=== PATIENT | female | born 1990 | race Caucasian/White ===

== ENCOUNTER 2020-02-22 21:09 | Inpatient (IN) | payer OTHER, SELFPAY ==
[2020-02-22] VITALS (8 sets, daily range): BP systolic 116–128; BP diastolic 74–80; PULSE 104–150; RESP 18–28; TEMP 37.6–38.1; O2SAT 96–99; BMI 29.0
--- NOTE | 2020-02-22 21:22 | ED_ITS ---
HPI - Sepsis General Chief Complaint: Fever Mode of arrival: Ambulatory Source: patient and family Limitations: no limitations Evaluation Sepsis Infection Criteria Present: Suspected New Infection Associated Symptoms: fever, chills, weakness, loss of appetite, nausea, vomiting and diarrhea Context: recent surgery/procedure Narrative: 29-year-old female nonsmoker with history of anxiety presents with her mother and a chief complaint of feeling quite ill for the past few days. Her symptoms include fever, shaking chills, body aches, lightheadedness, fatigue, nausea, vomiting, and diarrhea. She denies any runny nose or sore throat. She denies any chest pain or shortness of breath. She had wisdom teeth removed on February 09 and had a follow-up in the aftermath to do a deep pocket washout. She had been on clindamycin prophylactically and started becoming ill over the past few days. She denies any bad food, exposure to other ill persons or those known to have COVID-19. She denies any blood in her stool at any point. She states that it is not uncommon for her to get nausea, vomiting and especially diarrhea when she is particularly anxious, which she admittedly is. She denies any facial swelling, trouble swallowing, particularly painful gums, teeth, foul or bitter tasting drainage, and states that her mouth actually feels pretty good. Review of Systems Constitutional Constitutional: Reports chills, Denies fatigue, Reports fever(s), Denies frequent falls, Denies lethargy and Reports weakness Eyes Eyes: Denies change in vision, Denies eye discharge, Denies irritation and Denies loss of vision ENT Ears, Nose, Mouth, and Throat: Denies change in voice, Denies dizziness, Denies neck pain, Denies sore throat and Denies throat swelling Cardiovascular Cardiovascular: Denies chest pain, Denies irregular heart rhythm, Denies lightheadedness, Reports palpitations, Denies dyspnea, Denies dyspnea on exertion and Denies orthopnea Respiratory Respiratory: Denies cough, Denies dyspnea, Denies dyspnea on exertion and Denies wheezing Gastrointestinal Gastrointestinal: Denies abdominal pain, Denies change in bowel habits, Reports diarrhea, Denies nausea and Reports vomiting Musculoskeletal Musculoskeletal: Denies neck pain and Denies numbness Integumentary/Breasts Skin/Breast: Denies pruritus, Denies erythema, Denies rash and Denies wounds Neurologic Neurologic: Denies behavioral changes, Denies confusion, Denies dizziness, Denies frequent falls, Denies loss of vision, Denies numbness and Reports weakness Psychiatric Psychiatric: Denies anxiety, Denies behavioral changes, Denies confusion, Denies depression, Denies homicidal ideation and Denies suicidal ideation Endocrine Endocrine: Denies fatigue, Denies flushing and Reports palpitations Hematologic/Lymphatic Hematologic/Lymphatic: Denies easy bruising Allergic/Immunologic Allergic/Immunologic: Denies urticaria, Denies throat swelling and Denies wheezing Patient History Medical History (Updated 02/23/20 @ 05:06 by SHERLY Wolfe) Anxiety Chronic low back pain Surgical History (Updated 02/23/20 @ 05:06 by SHERLY Wolfe) History of wisdom tooth extraction Family History (Updated 02/23/20 @ 05:08 by SHERLY Wolfe) Father Medical history unknown Mother Hypertension Sister No significant medical problems Grandmother Cancer Grandfather Heart disease Social History household members: significant other Smoking Status: Never smoker alcohol intake: current Smoking Status: Never smoker alcohol intake frequency: 0-2 drinks per day Substance Use Type: does not use Exam Narrative Exam Narrative: GENERAL: [21] year old patient appears stated age. Well-nourish ed, well-developed patient, in obvious distress, feeling poorly, holding an emesis bag. HEAD: Atraumatic. Normocephalic. No obvious swelling, redness or induration. EYES: Pupils equal round and reactive. Extraocular motions intact. No scleral icterus. No injection or drainage. ENT: Nose without bleeding, purulent drainage. Throat without erythema, tonsillar hypertrophy or exudate. Airway patent. Surgical pockets showed no obvious sign of infection such as drainage, inflammation, erythema, or significant tenderness to palpation NECK: Trachea midline. Non tender CARDIOVASCULAR: Tachycardic but regular rhythm without murmurs, gallops, or rubs. RESPIRATORY: Clear to auscultation. Breath sounds equal bilaterally. No wheezes, rales, or rhonchi. GASTROINTESTINAL: Abdomen soft, non-tender, nondistended. EXTREMITIES: No edema or joint tenderness. BACK: Nontender without deformity or crepitance. No flank tenderness. NEURO: AOx3. SKIN: No rash or erythema of visible areas Initial Vital Signs Initial Vital Signs: Vital Signs Temperature 100.5 F H 02/22/20 21:30 Pulse Rate 150 H 02/22/20 21:30 Respiratory Rate 18 02/22/20 21:30 Blood Pressure 128/80 02/22/20 21:30 Pulse Oximetry 96 02/22/20 21:30 Course Orders Ordered: ED Orders 02/22/20 21:23 EKG-12 Lead Stat 02/22/20 21:30 Influenza A & B (PCR) Stat 02/22/20 21:32 COVID19 Stat 02/22/20 21:40 C-Reactive Protein Quant Stat Complete Blood Count AUTO DIFF Stat Comprehensive Metabolic Panel Stat Ferritin Stat Lactate (Lactic Acid) Stat Magnesium Stat Procalcitonin Stat 02/22/20 21:45 Blood Culture Stat 02/22/20 22:54 XR chest 1V Stat Acetaminophen (Acetaminophen 325 Mg Tablet) 650 mg PO Q4HR PRN PRN Reason: Fever/Mild Pain (1-3) Last Admin: 02/23/20 05:14 Dose: 650 mg Documented by: Admin: 02/23/20 01:22 Dose: 650 mg Documented by: MARGA Enoxaparin Sodium (Enoxaparin 40 Mg/0.4 Ml Syringe) 40 mg SUBCUT DAILY [facility] Lactated Ringer's (Lactated Ringers) 1,000 mls @ 150 mls/hr IV CONT [facility] Last Admin: 02/23/20 01:26 Dose: 150 mls/hr Documented by: MARGA Vancomycin HCl (Vancomycin) 1,250 mg in 250 mls @ 250 mls/hr IV Q12H [facility] Last Admin: 02/23/20 03:07 Dose: 250 mls/hr Documented by: MARGA Ceftriaxone Sodium/Dextrose (Rocephin) 2 gm in 50 mls @ 100 mls/hr IV Q24H [facility] Last Infusion: 02/23/20 03:05 Dose: 100 mls/hr Documented by: Admin: 02/23/20 02:17 Dose: 100 mls/hr Documented by: MARGA Ketorolac Tromethamine (Ketorolac 30 Mg/Ml Vial) 30 mg IV Q6HR PRN PRN Reason: Pain, Severe (7-10) Stop: 02/28/20 00:14 Lidocaine (Lidocaine Patch 1 Each Adh..Patch) 1 each TOP DAILY PRN PRN Reason: Pain, Moderate (4-6) Last Admin: 02/23/20 05:14 Dose: 1 each Documented by: MARGA Lorazepam (Lorazepam 2 Mg/Ml Inj) 0.5 mg IV Q6HR PRN PRN Reason: Nausea Last Admin: 02/23/20 01:15 Dose: 1 mg Documented by: MARGA Metoclopramide HCl (Metoclopramide 10 Mg/2 Ml Inj) 10 mg IV Q6HR PRN PRN Reason: Nausea And Vomiting Naloxone HCl (Naloxone 0.4 Mg/Ml Vial) 0.2 mg IV Q2MIN PRN PRN Reason: Opiate Reversal Ondansetron HCl (Ondansetron 4 Mg/2 Ml Inj) 4 mg IV Q6HR PRN PRN Reason: Nausea And Vomiting Last Admin: 02/23/20 05:14 Dose: 4 mg Documented by: MARGA Vancomycin HCl (Vancomycin Per Pharmacy) 1 request MIS NOW ONE Stop: 02/23/20 01:08 Discontinued Medications Lactated Ringer's (Lactated Ringers) 1,000 mls @ 1,000 mls/hr IV BOLUS ONE Stop: 02/22/20 22:21 Last Infusion: 02/22/20 23:25 Dose: 0 mls/hr Documented by: Admin: 02/22/20 21:47 Dose: 1,000 mls/hr Documented by: TRICIA Ampicillin Sodium/Sulbactam (Sodium 3 gm/ Sodium Chloride) 100 mls @ 100 mls/hr IV NOW ONE Stop: 02/22/20 22:55 Last Infusion: 02/23/20 00:15 Dose: 0 mls/hr Documented by: Admin: 02/22/20 23:14 Dose: 100 mls/hr Documented by: DEMETRIS Lactated Ringer's (Lactated Ringers) 1,779 mls @ 593 mls/hr 30 ml/kg infuse over 3 hr (1779 ml) IV NOW ONE Stop: 02/23/20 01:53 Last Admin: 02/22/20 23:13 Dose: 593 mls/hr Documented by: DEMETRIS Magnesium Sulfate (Magnesium Sulfate) 2 gm in 50 mls @ 25 mls/hr IV NOW ONE Stop: 02/23/20 02:17 Last Admin: 02/23/20 01:32 Dose: 25 mls/hr Documented by: MARGA Cosigned by: DERICK Influenza Virus Vaccine (Influenza Vaccine 0.5 Ml Syringe) 0.5 ml IM .ONCE ONE Stop: 02/23/20 02:11 Ketorolac Tromethamine (Ketorolac 60 Mg/2 Ml Vial) 15 mg IV NOW ONE Stop: 02/22/20 21:23 Last Admin: 02/22/20 21:47 Dose: 15 mg Documented by: TRICIA Lorazepam (Lorazepam 2 Mg/Ml Inj) 0.5 mg IV NOW ONE Stop: 02/22/20 23:50 Last Admin: 02/22/20 23:55 Dose: 0.5 mg Documented by: DEMETRIS Lorazepam (Lorazepam 2 Mg/Ml Inj) 1 mg IV NOW ONE Stop: 02/23/20 01:13 Last Admin: 02/23/20 02:40 Dose: Not Given Documented by: MARGA Ondansetron HCl (Ondansetron 4 Mg/2 Ml Inj) 4 mg IV Q4HR PRN PRN Reason: Nausea And Vomiting Last Admin: 02/22/20 21:48 Dose: 4 mg Documented by: TRICIA Reevaluation(s) Reevaluation #1: temperature down to 99.7F after toradol Patient reports allergy to PCN as a baby and had a rash, no hives, swelling, or trouble breathing. We discussed at length that the vast majority of reported PCN allergies are not true allergy, particularly if only a mild rash. Unasyn given with no itching, rash, swelling, trouble breathing or other. Consultations Consultation #1: hospitalist happy to accept Vital Signs Vital signs: Vital Signs - 8 hr 02/22/20 22:05 02/22/20 22:30 02/22/20 23:00 Pulse Rate 119 H 104 H 110 H Respiratory Rate 26 H 28 H 28 H Blood Pressure 120/74 120/75 117/74 Pulse Oximetry 97 98 98 02/22/20 23:22 02/22/20 23:30 Pulse Rate 104 H 109 H Respiratory Rate 28 H 26 H Blood Pressure 119/75 116/75 Pulse Oximetry 98 99 MDM - Sepsis Lab Data Result diagrams: 02/22/20 21:40 01/09/21 21:40 Labs: Lab Results 02/22/20 02/22/20 02/22/20 Range/Units 21:30 21:32 21:40 WBC 23.3 H (4.5-11.0) X10^3/uL RBC 4.32 (4.0-5.2) X10^6/uL Hgb 12.5 (12.0-16.0) g/dL Hct 36.6 (36-46) % MCV 84.9 (80-100) fL MCH 28.9 (26-34) PG MCHC 34.1 (30-36) % RDW 12.9 (11.6-14.8) % Plt Count 265 (150-400) X10^3/uL Neut % (Auto) 90.8 H (50-75) % Lymph % (Auto) 2.8 L (25-40) % [place] % (Auto) 5.6 (3-14) % Eos % (Auto) 0.2 L (2-4) % Baso % (Auto) 0.6 (0-2) % Neut # (Auto) 00938 H (8746-9484) /uL Lymph # (Auto) 700 L (7057-5933) /uL [place] # (Auto) 1300 H (0-900) /uL Eos # (Auto) 100 (0-450) /uL Baso # (Auto) 100 (0-100) /uL Sodium (137-145) mmol/L Potassium (3.4-5.1) mmol/L Chloride (98-107) mmol/L Carbon Dioxide (22-32) mmol/L BUN (7-17) mg/dL Creatinine (0.52-1.04) mg/dL Estimated GFR (>60) mL/min BUN/Creatinine Ratio (6-22) Glucose (70-100) mg/dL Lactate (0.7-2.1) mmol/L Calcium (8.4-10.2) mg/dL Magnesium (1.6-2.3) mg/dL Ferritin (6-137) ng/mL Total Bilirubin (0.2-1.3) mg/dL AST (14-36) IU/L ALT (<35) IU/L Alkaline Phosphatase (38-126) U/L C-Reactive Protein (<1.0) mg/dL Total Protein (6.3-8.2) g/dL Albumin (3.5-5.0) g/dL Globulin (1.7-4.1) g/dL Albumin/Globulin Ratio (1.0-2.8) Procalcitonin (<0.5) ng/mL SARS-CoV-2 (PCR) Negative (Negative) Influenza A (RT-PCR) Flu a negative (NEGATIVE) Influenza B (RT-PCR) Flu b negative (NEGATIVE) 02/22/20 02/22/20 02/22/20 Range/Units 21:40 21:40 21:40 WBC (4.5-11.0) X10^3/uL RBC (4.0-5.2) X10^6/uL Hgb (12.0-16.0) g/dL Hct (36-46) % MCV (80-100) fL MCH (26-34) PG MCHC (30-36) % RDW (11.6-14.8) % Plt Count (150-400) X10^3/uL Neut % (Auto) (50-75) % Lymph % (Auto) (25-40) % [place] % (Auto) (3-14) % Eos % (Auto) (2-4) % Baso % (Auto) (0-2) % Neut # (Auto) (4136-6864) /uL Lymph # (Auto) (5668-3187) /uL [place] # (Auto) (0-900) /uL Eos # (Auto) (0-450) /uL Baso # (Auto) (0-100) /uL Sodium 136 L (137-145) mmol/L Potassium 3.6 (3.4-5.1) mmol/L Chloride 107 (98-107) mmol/L Carbon Dioxide 20 L (22-32) mmol/L BUN 11 (7-17) mg/dL Creatinine 0.57 (0.52-1.04) mg/dL Estimated GFR > 60.0 (>60) mL/min BUN/Creatinine Ratio 19.3 (6-22) Glucose 147 H (70-100) mg/dL Lactate 2.5 H (0.7-2.1) mmol/L Calcium 9.1 (8.4-10.2) mg/dL Magnesium 1.5 L (1.6-2.3) mg/dL Ferritin 48 (6-137) ng/mL Total Bilirubin 0.5 (0.2-1.3) mg/dL AST 19 (14-36) IU/L ALT 20 (<35) IU/L Alkaline Phosphatase 65 (38-126) U/L C-Reactive Protein 1.3 H (<1.0) mg/dL Total Protein 7.0 (6.3-8.2) g/dL Albumin 4.0 (3.5-5.0) g/dL Globulin 3.0 (1.7-4.1) g/dL Albumin/Globulin Ratio 1.3 (1.0-2.8) Procalcitonin < 0.05 (<0.5) ng/mL SARS-CoV-2 (PCR) (Negative) Influenza A (RT-PCR) (NEGATIVE) Influenza B (RT-PCR) (NEGATIVE) Point of Care Testing Test Results Negative Urine Dip Bedside Urine Glucose Negative Bedside Urine Bilirubin - Negative Bedside Urine Ketone - Negative Urine Specific [place] 1.030 Bedside Urine Occult Blood - Negative Bedside Urine pH 6 Bedside Urine Protein - Negative Bedside Urine Urobilinogen - Negative Bedside Urine Nitrite - Negative Bedside Urine Leukocytes - Negative Esterase Imaging Data Chest x-ray: Attestation: I personally reviewed and interpreted this imaging study as follows: My Impression: NAP Radiologist's Impression: No findings MDM Narrative Medical decision making narrative: 29-year-old female presents with sepsis, recent dental procedure raising the concern of odontogenic spread and bacteremia as source. Her GI symptoms are considered as a possible source, but no blood in stool, no BM or vomiting in department, no pain and similar to what happens when she becomes anxious. CXR is clear, urine is clear. Patient has Lactate 2.5 and WBC over 20,000. She will require admission for further characterization of her sepsis and ongoing treatment and evaluation. Discharge Plan Departure Patient Disposition: Admitted As Inpatient Clinical Impression: Bacteremia Sepsis Qualifiers: Sepsis type: sepsis due to unspecified organism Sepsis acute organ dysfunction status: without acute organ dysfunction Qualified Code(s): A41.9 - Sepsis, unspecified organism Admit Date/Time: 02/22/20 23:32 Admit Provider: Hossein Marie
[2020-02-22] MEDS: KETOROLAC 60 MG/2 ML VIAL 15 MG IV (21:47)
[2020-02-22] MEDS: LACTATED RINGERS 1,000 ML 1000 ML IV (21:47)
[2020-02-22] MEDS: ONDANSETRON 4 MG/2 ML INJ IV (21:48)
[2020-02-22 21:50] LABS: Add Manual Diff / Slide Review NO; Basophils Absolute Auto 100 /uL (0-100); Basophils Percent Auto 0.6 % (0-2); Eosinophils Absolute Auto 100 /uL (0-450); Eosinophils Percent Auto 0.2 % (2-4); Hematocrit 36.6 % (36-46); Hemoglobin 12.5 g/dL (12.0-16.0); Lymphocytes Absolute Auto 700 /uL (1100-4500); Lymphocytes Percent Auto 2.8 % (25-40); Mean Corpuscular HGB Conc 34.1 % (30-36); Mean Corpuscular Hemoglobin 28.9 PG (26-34); Mean Corpuscular Volume 84.9 fL (80-100); Monocytes Absolute Auto 1300 /uL (0-900); Monocytes Percent Auto 5.6 % (3-14); Neutrophils Absolute Auto 21100 /uL (1500-7000); Neutrophils Percent Auto 90.8 % (50-75); Platelet Count 265 X10^3/uL (150-400); Red Blood Cell Count 4.32 X10^6/uL (4.0-5.2); Red Cell Distribution Width 12.9 % (11.6-14.8); White Blood Cell Count 23.3 X10^3/uL (4.5-11.0)
[2020-02-22 22:03] LABS: Lactate (Lactic Acid) 2.5 mmol/L (0.7-2.1)
[2020-02-22 22:05] LABS: Alanine Aminotransferase 20 IU/L (<35); Albumin Globulin Ratio 1.3 (1.0-2.8); Alkaline Phosphatase 65 U/L (38-126); Aspartate Aminotransferase 19 IU/L (14-36); BUN Creatinine Ratio 19.3 (6-22); Bilirubin Total 0.5 mg/dL (0.2-1.3); Blood Urea Nitrogen 11 mg/dL (7-17); C-Reactive Protein Quant 1.3 mg/dL (<1.0); Calcium 9.1 mg/dL (8.4-10.2); Carbon Dioxide 20 mmol/L (22-32); Chloride 107 mmol/L (98-107); Estimated Glomerular Filt Rate > 60.0 mL/min (>60); Glucose 147 mg/dL (70-100); HEMOLYSIS < 15 (0-50); Magnesium 1.5 mg/dL (1.6-2.3); Potassium 3.6 mmol/L (3.4-5.1); Sodium 136 mmol/L (137-145)
[2020-02-22 22:05] LABS: Influenza A - CEPHEID Flu A NEGATIVE (NEGATIVE); Influenza B - CEPHEID Flu B NEGATIVE (NEGATIVE)
[2020-02-22 22:17] LABS: Procalcitonin < 0.05 ng/mL (<0.5)
[2020-02-22 22:29] LABS: COVID19 -Nasal RAPID Negative (Negative)
[2020-02-22 22:38] LABS: Ferritin 48 ng/mL (6-137)
--- NOTE | 2020-02-22 22:54 | DI.RAD.S_ITS ---
PROCEDURE: XR CHEST 1V INDICATIONS: sepsis TECHNIQUE: One view of the chest was acquired. COMPARISON: None. FINDINGS: Surgical changes and devices: None. Lungs and pleura: Lungs are clear. No pleural effusions or pneumothorax. Mediastinum: Mediastinal contours appear normal. Heart size is normal. Bones and chest wall: No suspicious bony lesions. Overlying soft tissues appear unremarkable. IMPRESSION: No acute cardiopulmonary abnormality. This report is concordant with the overnight preliminary interpretation. Dictated by: Frank Henriquez M.D. on 02/23/2020 at 7:38 Approved by: Frank Henriqeuz M.D. on 02/23/2020 at 7:39
[2020-02-22] MEDS: LACTATED RINGERS 1,779 ML 593 ML IV (23:13)
[2020-02-22] MEDS: AMPICILLIN/SULBACTAM 3 GM 3 GM in SODIUM CHLORIDE 0.9% 100 ML IV (23:14)
[2020-02-22 23:45] LABS: Reflexed Lactate in 2 Hours Y
[2020-02-22] MEDS: LORazepam 2 MG/ML INJ 0.5 MG IV (23:55)
[2020-02-23] VITALS (19 sets, daily range): BP systolic 72–125; BP diastolic 48–81; PULSE 107–132; RESP 14–41; TEMP 36.9–39.5; O2SAT 94–100
[2020-02-23 00:16] LABS: Lactate 2HR (Lactic Acid Rflx) 1.6 mmol/L (0.7-2.1)
--- NOTE | 2020-02-23 01:05 | P.HP_ITS ---
History of Present Illness History of Present Illness Date Patient Seen: 02/23/20 Time Patient Seen: 01:16 Chief complaint: rash/fever/vomiting/ wisdom teeth 02/09 Narrative: Ms. Tessie Villa is a 29-year-old female with past medical history only significant for anxiety not being medically treated and chronic low back pain from sports injury and status post wisdom tooth extraction on 02/05/2020 with postoperative pain is swelling with washout on 02/17/2020. The patient's dental symptoms improved until today. The patient describes feeling poorly today and her mother described her as having been irritable. She began having an acute onset nausea and vomiting approximately 8:00 p.m. this evening. She has had multiple episodes of emesis now reports dry heaves. The patient has had fevers and shaking rigors and denies headache, exacerbation of her chronic back and hip pain. She to Sabrina reports having intermittent episodes of dizziness over the last week. She reports no complaints of chest pain or palpitations has had no shortness breath except for hyperventilation with anxiety attacks. She has had no cough or wheezing. She denies complaints of epigastric or abdominal pain. She reports she has had diarrhea the last few days but also knows that she has diarrhea with anxiety and stress. She reports no urinary symptoms of burning urgency or frequency. She reports she has irregular menstrual. Is with her last period being 2 months ago and states that she could not be . Upon arrival to the ER the patient's temperature 100.5?, tachycardic of 150, blood pressure 128/80, respirations of 18 saturating 96% on room air. Chest x- ray is obtained which is unremarkable. On laboratory analysis the patient has over a count of 23.3 with increased neutrophils at 21,100 and increased monocytes at 1300. Her hemoglobin is 12.5 with hematocrit of 36.6 and platelets 265. Her chemistries unremarkable with a BUN of 11 and creatinine 0.57. She does have a low magnesium of 1.5. Her nonfasting glucose is 147. Liver functio n tests are all within normal limits. Upon arrival her lactic acid is 2.5 minutes following fluid resuscitation is improved to 1.6. Ferritin is 48 and CRP is 1.3. Her procalcitonin is less than 0.05. Her urine is concentrated with a specific gravity of 1 point at 12:30 a.m., pH of 6.0 and noninfected. In the ER lactated Ringer sepsis bolus was initiated, blood cultures were drawn, Toradol and Ativan and Zofran were administered. The patient was started on Unasyn. The patient is admitted to the hospitalist service for sepsis with cardiovascular dysfunction due to probable bacteremia. Patient History Medical History (Updated 02/23/20 @ 05:06 by SHERLY Wolfe) Anxiety Chronic low back pain Surgical History (Updated 02/23/20 @ 05:06 by SHERLY Wolfe) History of wisdom tooth extraction Family & Social History Family History (Updated 02/23/20 @ 05:08 by SHERLY Wolfe) Father Medical history unknown Mother Hypertension Sister No significant medical problems Grandmother Cancer Grandfather Heart disease Safety & Behavioral: Feels Safe in Current Yes Environment Tobacco & Substance use: Smoking Status Never smoker alcohol intake frequency 0-2 drinks per day Substance Use Type does not use Meds Home Medications and Allergies Allergies Allergy/AdvReac Type Severity Reaction Status Date / Time amoxicillin Allergy Verified 02/22/20 21:29 Review of Systems Review of Systems ROS: Yes All systems reviewed with the patient and are negative except as otherwise documented Exam Vital Signs (past 8 hours): - 02/22/20 21:30 02/22/20 22:05 02/22/20 22:30 Temperature 100.5 F H Pulse Rate 150 H 119 H 104 H Respiratory Rate 18 26 H 28 H Blood Pressure 128/80 120/74 120/75 Pulse Oximetry 96 97 98 02/22/20 23:00 02/22/20 23:22 02/22/20 23:30 Temperature Pulse Rate 110 H 104 H 109 H Respiratory Rate 28 H 28 H 26 H Blood Pressure 117/74 119/75 116/75 Pulse Oximetry 98 98 99 02/22/20 23:40 02/22/20 23:41 Temperature 99.7 F H 99.7 F H Pulse Rate Respiratory Rate Blood Pressure Pulse Oximetry Oxygen Delivery Method Room Air Narrative Exam Narrative: GENERAL APPEARANCE: well developed, obese young female who is severely anxious, sobbing with dry heaves lying in a right position. HEENT: Normocephalic, PERRLA, conjunctiva with vascular injection, EOMs intact without nystagmus, clear rhinorrhea, mucous membranes are moist and pink without lesions or exudate. NECK/THYROID: neck supple, nontender without step-offs, no JVD, no thyromegaly, trachea midline. LYMPH NODES: no cervical or supraclavicular lymphadenopathy. SKIN: [employer], warm and dry, no visible lesions or rashes. HEART: regular rate and rhythm, S1-S2, no murmur, no rubs or gallops, brisk capillary refill, no edema LUNGS: clear to auscultation bilaterally, no coarseness crackles or wheezing, no cough present CHEST: Symmetrical movement, no accessory muscle use, good tidal volume. ABDOMEN: Soft, no distention, no epigastric or abdominal tenderness, no organomegaly, no flank or suprapubic tenderness, active bowel tones. BACK: Loss of lumbar lordosis, mild pain on palpation, no palpable muscle spasms. EXTREMITIES: moves all extremities, strength is 5/5 and symmetrical, no deformities or joint effusions. NEUROLOGIC: AAO x4, cranial nerves II-XII grossly intact, sensation intact to light touch, no carpal pedal spasms PSYCH: Severely anxious, dry heaving and hyperventilating, able to calm intermittently with continued paroxysms of sobbing. Objective Labs Result Diagrams: 02/22/20 21:40 02/22/20 21:40 Labs: Laboratory Results - last 24 hr 02/22/20 02/22/20 02/22/20 21:30 21:32 21:40 WBC 23.3 H RBC 4.32 Hgb 12.5 Hct 36.6 MCV 84.9 MCH 28.9 MCHC 34.1 RDW 12.9 Plt Count 265 Neut % (Auto) 90.8 H Lymph % (Auto) 2.8 L [place] % (Auto) 5.6 Eos % (Auto) 0.2 L Baso % (Auto) 0.6 Neut # (Auto) 34522 H Lymph # (Auto) 700 L [place] # (Auto) 1300 H Eos # (Auto) 100 Baso # (Auto) 100 Sodium Potassium Chloride Carbon Dioxide BUN Creatinine Estimated GFR BUN/Creatinine Ratio Glucose Lactate Calcium Magnesium Ferritin Total Bilirubin AST ALT Alkaline Phosphatase C-Reactive Protein Total Protein Albumin Globulin Albumin/Globulin Ratio Procalcitonin SARS-CoV-2 (PCR) Negative Influenza A (RT-PCR) Flu a negative Influenza B (RT-PCR) Flu b negative 02/22/20 02/22/20 02/22/20 21:40 21:40 21:40 WBC RBC Hgb Hct MCV MCH MCHC RDW Plt Count Neut % (Auto) Lymph % (Auto) [place] % (Auto) Eos % (Auto) Baso % (Auto) Neut # (Auto) Lymph # (Auto) [place] # (Auto) Eos # (Auto) Baso # (Auto) Sodium 136 L Potassium 3.6 Chloride 107 Carbon Dioxide 20 L BUN 11 Creatinine 0.57 Estimated GFR > 60.0 BUN/Creatinine Ratio 19.3 Glucose 147 H Lactate 2.5 H Calcium 9.1 Magnesium 1.5 L Ferritin 48 Total Bilirubin 0.5 AST 19 ALT 20 Alkaline Phosphatase 65 C-Reactive Protein 1.3 H Total Protein 7.0 Albumin 4.0 Globulin 3.0 Albumin/Globulin Ratio 1.3 Procalcitonin < 0.05 SARS-CoV-2 (PCR) Influenza A (RT-PCR) Influenza B (RT-PCR) 02/22/20 23:56 WBC RBC Hgb Hct MCV MCH MCHC RDW Plt Count Neut % (Auto) Lymph % (Auto) [place] % (Auto) Eos % (Auto) Baso % (Auto) Neut # (Auto) Lymph # (Auto) [place] # (Auto) Eos # (Auto) Baso # (Auto) Sodium Potassium Chloride Carbon Dioxide BUN Creatinine Estimated GFR BUN/Creatinine Ratio Glucose Lactate 1.6 Calcium Magnesium Ferritin Total Bilirubin AST ALT Alkaline Phosphatase C-Reactive Protein Total Protein Albumin Globulin Albumin/Globulin Ratio Procalcitonin SARS-CoV-2 (PCR) Influenza A (RT-PCR) Influenza B (RT-PCR) Assessment & Plan Assessment & Plan narrative: This is a 29-year-old female patient with past medical history only significant for anxiety who presents to the ER with nausea and vomiting, shaking chills and tachycardia. The patient is status post with teeth extraction and with a washout 5 days ago due to pain swelling and retained food. 1. Severe sepsis with end-organ dysfunction, unknown etiology, acute, present on admission, active -patient presents to the ER markedly tachycardic heart rate of 150 to maintain adequate blood pressure with associated fever and shaking chills, dizziness and nausea vomiting today. -Patient is dehydrated evidence by concentrated urine a specific gravity of 1.030 and a lactic acid of 2.1 in CRP of 1.3. -patient had recent wisdom tooth extraction on 02/05/2020 requiring a washout for pain and swelling on 02/17/2020. -in the ER the patient received bolus sepsis of lactated Ringer's with improvement in heart rate to approximately 105. -ordered lactated Ringer's 150 cc/hour. 2. Probable bacteremia secondary to oral surgery procedures, acute, present on admission, active -The patient has fevers and rigors associated dizzy is nausea and vomiting with body aches. -they patient had oral surgery procedures with wisdom tooth extractions on 02/05/2020 with a washout for swelling and pain on 02/17/2020. -in the ER the patient received initial dose of Unasyn 3 g. Broadened coverage to cover staph as well as strep species, ordered vancomycin 1250 mg initial dose and dosing per pharmacy. Additionally ordered ceftriaxone 2 g IV every 24 hours. -ordered Tylenol 650 mg p.o. every 4 hours as needed for mild pain or fever. -ordered Toradol 30 mg IV every 6 hours as needed for severe pain or persistent fever. -will narrow antibiotic coverage pending blood culture results. -will recheck CBC and procalcitonin. Lactic acid initially 2.5 is improved to 1.6. 3. Acute panic attack, chronic generalized anxiety disorder, present on ad mission, active. -the patient has a history of anxiety diet medically treated. She has previously attempted cognitive behavioral therapy which was discontinued in the COVID 19 pandemic. -the patient presents with sobbing, nausea vomiting and hyperventilation. She is able be calmed somewhat will continue to have paroxysms of sobbing and shaking. Order hydralazine 10 mg p.o. every 8 hours as needed for anxiety. -the patient received Ativan 0.5 mg in the ER, ordered Ativan 1 mg x 1 now and will continue Ativan 0.5 mg every 6 hours as needed. -requested social work consult for community resources. VTE prophylaxis: Enoxaparin 40 mg IV fluid: Lactated Ringer's 150 cc/hour Diet: NPO, clear liquids in the morning Code status: Full code, the patient's mother is a surrogate decision maker. The patient is admitted to the hospital due to the severity of her symptoms requiring ongoing intervention IV antibiotics and close monitoring to prevent complications and adverse events. The patient is admitted as an inpatient with expected length of stay to be greater than 2 midnights. Scores GCS Overgaard coma scale eye opening: Spontaneous Cristóbal coma scale verbal response: Orientated Overgaard coma scale motor response: Obey commands Overgaard coma scale total score: 15 SOFA PaO2/FIO2: >=400 mmHg Platelets: >= 150 Bilirubin: < 1.2 mg/dL Hypotension: MAP >= 70 mmHg Cristóbal Coma Scale: 15 Renal: < 1.2 mg/dL SOFA Score: 0
[2020-02-23] MEDS: LORazepam 2 MG/ML INJ 0.5 MG IV ×2 (01:15→13:51)
[2020-02-23] MEDS: ACETAMINOPHEN 325 MG TABLET 650 MG PO ×2 (01:22→05:14)
[2020-02-23] MEDS: LACTATED RINGERS 1,000 ML 150 ML IV ×2 (01:26→09:50)
[2020-02-23] MEDS: MAGNESIUM SULFATE 2 GM/50 ML PIGGYBACK IV (01:32)
[2020-02-23] MEDS: CEFTRIAXONE 2 GM/50 ML FROZ.PIGGY IV (02:17)
--- NOTE | 2020-02-23 02:35 | PC.ADMIT ---
[id number] [facility] Admission Note: Pt arrived to floor accompanied by her mother. Self transferred into bed. Pt was extremely anxious/tearful/crying loudly. Pt's mother informed us that pt suffers from generalized anxiety disorder. SHERLY Marie ordered Ativan which worked well to help pt regain control. Pt's mother will be staying with her. Pt c/o of generalized aches and pains due to chronic back and hip pain and aches from fever (103. upon admit). Pt aware of NPO status. Admit and initial assessment complete. Pt is now resting comfortably. The patient,Tessie King,29 y/o, was given written information regarding hospital policies, unit procedures and contact persons. Patient's smoking status: Never smoker. Vital Signs - 8 hr 02/22/20 21:30 02/22/20 22:05 02/22/20 22:30 Temperature 100.5 F H Pulse Rate 150 H 119 H 104 H Respiratory Rate 18 26 H 28 H Blood Pressure 128/80 120/74 120/75 Pulse Oximetry 96 97 98 02/22/20 23:00 02/22/20 23:22 02/22/20 23:30 Temperature Pulse Rate 110 H 104 H 109 H Respiratory Rate 28 H 28 H 26 H Blood Pressure 117/74 119/75 116/75 Pulse Oximetry 98 98 99 02/22/20 23:40 02/22/20 23:41 02/23/20 00:11 Temperature 99.7 F H 99.7 F H Pulse Rate Respiratory Rate Blood Pressure Pulse Oximetry 96 02/23/20 01:22 02/23/20 01:55 Temperature 103.1 F H 103.1 F H Pulse Rate 112 H Respiratory Rate 41 H Blood Pressure 72/48 L Pulse Oximetry 100
[2020-02-23] MEDS: VANCOMYCIN 1,250 MG/250 ML PIGGYBACK 250 MG IV ×2 (03:07→10:44)
[2020-02-23] MEDS: LIDOCAINE PATCH 1 EACH ADH..PATCH TOP (05:14)
[2020-02-23] MEDS: ONDANSETRON 4 MG/2 ML INJ IV (05:14)
[2020-02-23 06:02] LABS: Add Manual Diff / Slide Review NO; Basophils Absolute Auto 100 /uL (0-100); Basophils Percent Auto 0.5 % (0-2); Eosinophils Absolute Auto 0 /uL (0-450); Hematocrit 35.2 % (36-46); Hemoglobin 12.2 g/dL (12.0-16.0); Lymphocytes Absolute Auto 700 /uL (1100-4500); Lymphocytes Percent Auto 3.9 % (25-40); Mean Corpuscular HGB Conc 34.7 % (30-36); Mean Corpuscular Hemoglobin 29.6 PG (26-34); Mean Corpuscular Volume 85.3 fL (80-100); Monocytes Absolute Auto 800 /uL (0-900); Monocytes Percent Auto 4.5 % (3-14); Neutrophils Absolute Auto 15800 /uL (1500-7000); Neutrophils Percent Auto 91.1 % (50-75); Platelet Count 216 X10^3/uL (150-400); Red Blood Cell Count 4.13 X10^6/uL (4.0-5.2); Red Cell Distribution Width 12.6 % (11.6-14.8); White Blood Cell Count 17.3 X10^3/uL (4.5-11.0)
[2020-02-23 06:09] LABS: BUN Creatinine Ratio 12.7 (6-22); Blood Urea Nitrogen 7 mg/dL (7-17); Calcium 8.3 mg/dL (8.4-10.2); Carbon Dioxide 24 mmol/L (22-32); Chloride 107 mmol/L (98-107); Estimated Glomerular Filt Rate > 60.0 mL/min (>60); Glucose 117 mg/dL (70-100); HEMOLYSIS < 15 (0-50); Potassium 3.7 mmol/L (3.4-5.1); Sodium 134 mmol/L (137-145)
[2020-02-23] MEDS: ENOXAPARIN 40 MG/0.4 ML SYRINGE SUBCUT (08:19)
[2020-02-23] MEDS: KETOROLAC 30 MG/ML VIAL IV (13:49)
--- NOTE | 2020-02-23 16:11 | CM.DANOTE ---
Discharge Planning/Care Management DCP: assessment: case received, EMR reviewed. Discussed in Team Rounds. Pt is a 29 year old female who admitted late last night to care of hospitalist team. She is being treated for infection after wisdom teeth extraction done 02/05/20. Dr. Paz confirmed she is on 2 IV antibiotics until the culture/sensitivities are in place. Pt lives with her significant other. Designated advocate/visitor is her mother April Castillo: [phone]. Anticipate at this time that pt will d/c to home when stable for same and likely on oral antibiotics but the POC is newly in process, Dr. Paz's note is not available yet for review. DCP team to follow to check in on pt and offer assist with d/c planning as these are needed. Due to lateness of hour need to defer this until tomorrow. CM Discharge Assessment Start: 02/23/20 16:10 Freq: Status: Active Protocol: Document 02/23/20 16:10 ITV (Rec: 02/23/20 16:11 ITV [id number]) Discharge Planning Assessment Advance Directives? No History Provided By Medical Record Prior Living Arrangements House Household Members significant other Review Status In Process
[2020-02-23] MEDS: metroNIDAZOLE 500 MG/100 ML PIGGYBACK 100 MG IV (17:52)
--- NOTE | 2020-02-23 18:21 | PC.NURSE ---
Addendum entered by Monica Kingsley R.N. 02/23/20 21:24: Pt med w/toradol x 1, for H/A w/relief resting quietly at this time. IVF continue as per orders Call light w/in reach, pt calls appropriately for needs, Continue w/plan of care. Original Note: Pt up ad bhumi in room. Denies discomfort @ this time Lungs clear, SpO2 98% RA IFV infusing LR into RAC @ 150cc/hr via pump w/o incidence HL LFA intact/patent. Call light w/in reach, pt calls appropriately for needs.
[2020-02-23] MEDS: SERTRALINE 50 MG TABLET 25 MG PO (20:33)
[2020-02-24] VITALS (7 sets, daily range): BP systolic 107–119; BP diastolic 57–75; PULSE 92–112; RESP 16–20; TEMP 37.2–37.6; O2SAT 96–98
[2020-02-24] MEDS: LACTATED RINGERS 1,000 ML 100 ML IV (00:10)
[2020-02-24] MEDS: CEFTRIAXONE 2 GM/50 ML FROZ.PIGGY IV (00:10)
--- NOTE | 2020-02-24 00:56 | PC.NURSE ---
Addendum entered by Ayleen Edmonds R.N. 02/24/20 02:17: Note: Facial edema r/t possible side effect of Flagyl (?) Original Note: 230 Received safe patient hand-off. The patient is currently sleeping on her right side. She is alert and oriented, has a right AC PIV that has LR infusing at 150mL/h and a left FA PIV that is saline-locked. She denies pain. She has a lidocaine patch on her lumbar spine, and this I have removed since it has been over 12 hours since administered. She is independent in the room, so the bed alarm is not activated. No s/sx of distress. The patient's mother is in the room, and asks why her (the patient's) face has been puffy. She states her oral surgery was a week ago. I told her I would note it in her chart and see if the provider had any thoughts.
[2020-02-24] MEDS: metroNIDAZOLE 500 MG/100 ML PIGGYBACK 100 MG IV ×2 (01:44→07:45)
[2020-02-24 05:57] LABS: Add Manual Diff / Slide Review NO; Basophils Absolute Auto 0 /uL (0-100); Basophils Percent Auto 0.2 % (0-2); Eosinophils Absolute Auto 100 /uL (0-450); Eosinophils Percent Auto 0.6 % (2-4); Hematocrit 30.3 % (36-46); Hemoglobin 10.3 g/dL (12.0-16.0); Lymphocytes Absolute Auto 1300 /uL (1100-4500); Lymphocytes Percent Auto 10.6 % (25-40); Mean Corpuscular HGB Conc 34.1 % (30-36); Mean Corpuscular Hemoglobin 29.1 PG (26-34); Mean Corpuscular Volume 85.4 fL (80-100); Monocytes Absolute Auto 700 /uL (0-900); Monocytes Percent Auto 6.1 % (3-14); Neutrophils Absolute Auto 9800 /uL (1500-7000); Neutrophils Percent Auto 82.5 % (50-75); Platelet Count 186 X10^3/uL (150-400); Red Blood Cell Count 3.55 X10^6/uL (4.0-5.2); Red Cell Distribution Width 12.9 % (11.6-14.8); White Blood Cell Count 11.8 X10^3/uL (4.5-11.0)
[2020-02-24 06:13] LABS: Alanine Aminotransferase 12 IU/L (<35); Albumin 2.7 g/dL (3.5-5.0); Alkaline Phosphatase 51 U/L (38-126); Aspartate Aminotransferase 19 IU/L (14-36); BUN Creatinine Ratio 9.3 (6-22); Bilirubin Total 0.1 mg/dL (0.2-1.3); Bilirubin Unconjugated 0.3 mg/dL (0.0-1.1); Blood Urea Nitrogen 5 mg/dL (7-17); Calcium 7.8 mg/dL (8.4-10.2); Carbon Dioxide 25 mmol/L (22-32); Chloride 109 mmol/L (98-107); Estimated Glomerular Filt Rate > 60.0 mL/min (>60); Globulin 2.6 g/dL (1.7-4.1); Glucose 117 mg/dL (70-100); HEMOLYSIS < 15 (0-50); Magnesium 1.7 mg/dL (1.6-2.3); Potassium 3.7 mmol/L (3.4-5.1); Sodium 135 mmol/L (137-145); Total Protein 5.3 g/dL (6.3-8.2)
--- NOTE | 2020-02-24 07:32 | PC.NURSE ---
Addendum entered by Bryanna Gil R.N. 02/24/20 12:14: Went over dc instructions and medications with patient, questions answered. RX sent electronically to [facility]. Patient reports pain to chest has improved, patient informed of CT results by Dr Rendon. Patient taken via wc to vehicle driven by mother, patient had all belongings. Addendum entered by Bryanna Gil R.N. 02/24/20 08:59: Patient taken down for CT PE study. Addendum entered by Bryanna Gil R.N. 02/24/20 08:12: Patient given 30mg IVP Toradol and 650mg tylenol for mid sternal chest pain. EKG complete and given to Dr Rendon, no new orders. Original Note: Patient c/o mid sternal chest pain, 08/22. Reports pain increases with deep breathing, no radiation of pain, denies nausea and vomiting. BP 119/71 HR 94 and regular, LS CTA sats on RA 96%. Dr Rendon aware, EKG ordered.
[2020-02-24] MEDS: ACETAMINOPHEN 325 MG TABLET 650 MG PO (07:44)
[2020-02-24] MEDS: KETOROLAC 30 MG/ML VIAL IV (07:45)
--- NOTE | 2020-02-24 08:36 | DI.CT.S_ITS ---
PROCEDURE: CT ANGIO CHEST PE PROTOCOL INDICATIONS: pleuritic chest pains shortness of breath TECHNIQUE: After the administration of intravenous contrast, 2 mm thick sections acquired from the pulmonary apices to the posterior costophrenic angles. 3-dimensional maximum intensity projection (MIP) coronal and sagittal reformats were then acquired through the thorax. For radiation dose reduction, the following was used: automated exposure control, adjustment of mA and/or kV according to patient size. COMPARISON: [facility], CR, XR CHEST 1V, 02/22/2020, 23:08. [facility], CR, XR CHEST 2VW, 08/08/2015, 2:11. FINDINGS: Image quality: Limited by suboptimal contrast opacification of the segmental and subsegmental pulmonary arteries. Pulmonary arteries: Pulmonary arteries are normal in size, and demonstrate no intraluminal filling defects to suggest large central pulmonary embolism. Lungs and pleura: Patchy consolidation noted in the T5 and portion of the lungs likely represent atelectasis, however developing pneumonia cannot be completely excluded by imaging alone. Trace bilateral pleural fluid collections noted. No pneumothorax. Central and peripheral airways are patent. Mediastinum: Heart size is normal, without pericardial effusion. No mediastinal or hilar adenopathy. Thoracic aorta is normal in caliber and enhancement. Esophagus is normal in caliber, without hiatal hernia. Bones and chest wall: No suspicious bony lesions. Ribs and thoracic spine appear intact throughout. Thyroid gland is within normal limits where visualized No axillary or supraclavicular adenopathy. Abdomen: Visualized upper abdominal solid organs appear normal in the early arterial phase of enhancement. IMPRESSION: 1. Diagnostic sensitivity of study for pulmonary embolus limited secondary to suboptimal contrast opacification of the segmental and subsegmental pulmonary arteries. 2. No large central pulmonary embolus. Small pulmonary emboli involving the segmental or subsegmental pulmonary arteries are not completely excluded by this study. 3. Trace bilateral pleural effusions. 4. Patchy consolidation in the lung bases bilaterally likely represents atelectasis, however developing pneumonia cannot be excluded by imaging alone. Recommend correlation with clinical and laboratory data. Dictated by: Claribel Monzon MD, PhD on 02/24/2020 at 9:41 Approved by: Claribel Monzon MD, PhD on 02/24/2020 at 10:02
--- NOTE | 2020-02-24 16:56 | PM.DS.1 ---
History of Present Illness History of Present Illness Chief complaint: rash/fever/vomiting/ wisdom teeth 02/09 Narrative: Ms. Tessie Villa is a 29-year-old female with past medical history only significant for anxiety not being medically treated and chronic low back pain from sports injury and status post wisdom tooth extraction on 02/05/2020 with postoperative pain is swelling with washout on 02/17/2020. The patient's dental symptoms improved until today. The patient describes feeling poorly today and her mother described her as having been irritable. She began having an acute onset nausea and vomiting approximately 8:00 p.m. this evening. She has had multiple episodes of emesis now reports dry heaves. The patient has had fevers and shaking rigors and denies headache, exacerbation of her chronic back and hip pain. She to Sabrina reports having intermittent episodes of dizziness over the last week. She reports no complaints of chest pain or palpitations has had no shortness breath except for hyperventilation with anxiety attacks. She has had no cough or wheezing. She denies complaints of epigastric or abdominal pain. She reports she has had diarrhea the last few days but also knows that she has diarrhea with anxiety and stress. She reports no urinary symptoms of burning urgency or frequency. She reports she has irregular menstrual. Is with her last period being 2 months ago and states that she could not be . Upon arrival to the ER the patient's temperature 100.5?, tachycardic of 150, blood pressure 128/80, respirations of 18 saturating 96% on room air. Chest x-ray is obtained which is unremarkable. On laboratory analysis the patient has over a count of 23.3 with increased neutrophils at 21,100 and increased monocytes at 1300. Her hemoglobin is 12.5 with hematocrit of 36.6 and platelets 265. Her chemistries unremarkable with a BUN of 11 and creatinine 0.57. She does have a low magnesium of 1.5. Her nonfasting glucose is 147. Liver function tests are all within normal limits. Upon arrival her lactic acid is 2.5 minutes following fluid resuscitation is improved to 1.6. Ferritin is 48 and CRP is 1.3. Her procalcitonin is less than 0.05. Her urine is concentrated with a specific gravity of 1 point at 12:30 a.m., pH of 6.0 and noninfected. In the ER lactated Ringer sepsis bolus was initiated, blood cultures were drawn, Toradol and Ativan and Zofran were administered. The patient was started on Unasyn. The patient is admitted to the hospitalist service for sepsis with cardiovascular dysfunction due to probable bacteremia. Discharge Providers Provider Date of admission: 02/22/20 23:32 Discharge Date: 02/24/20 Consults: 02/23/20 00:18 Consult to Discharge Planning Routine Comment: Discharge provider: Regan Rendon MD Summary Hospital Course Discharge Diagnosis: 1. Sepsis 2. Anxiety disorder Patient was admitted with fever, tachycardia, hypotension, nausea and vomiting. She had markedly elevated WBC 23.3. She was fluid resuscitated and started on broad-spectrum antibiotic management based on recent dental procedure raising concern for bacteremia. Ultimately blood cultures were negative. She had good improvement with resolution of fever and WBC down to near normal. She is being discharged on Ceftin to complete total 10 day antibiotic course. Additionally, she had significant anxiety symptoms with history of prior panic attacks. She was agreeable to starting on sertraline with outpatient PCP follow-up. She had been complaining of recurrent substernal chest pain with serial normal EKGs. A CT angio on day of discharge ruled out major pulmonary embolism. Source of chest pain is likely anxiety related versus reflux or rib strain. Status at Discharge Cognitive/behavioral status at discharge: oriented Functional status at discharge: independent ambulation Overall status at discharge: patient is progressing back to baseline Time Spent with Patient Time spent: Greater than 30 minutes Exam Vital Signs (past 8 hours): Oxygen Delivery Method Room Air Oxygen Flow Rate 0 Objective Labs Result Diagrams: 02/24/20 05:06 02/24/20 05:08 Labs: Laboratory Results - last 24 hr 02/24/20 02/24/20 05:06 05:08 WBC 11.8 H RBC 3.55 L Hgb 10.3 L Hct 30.3 L MCV 85.4 MCH 29.1 MCHC 34.1 RDW 12.9 Plt Count 186 Neut % (Auto) 82.5 H Lymph % (Auto) 10.6 L [place] % (Auto) 6.1 Eos % (Auto) 0.6 L Baso % (Auto) 0.2 Neut # (Auto) 9800 H Lymph # (Auto) 1300 [place] # (Auto) 700 Eos # (Auto) 100 Baso # (Auto) 0 Sodium 135 L Potassium 3.7 Chloride 109 H Carbon Dioxide 25 BUN 5 L Creatinine 0.54 Estimated GFR > 60.0 BUN/Creatinine Ratio 9.3 Glucose 117 H Calcium 7.8 L Magnesium 1.7 Total Bilirubin 0.1 L Conjugated Bilirubin 0.0 Unconjugated Bilirubin 0.3 AST 19 ALT 12 Alkaline Phosphatase 51 Total Protein 5.3 L Albumin 2.7 L Globulin 2.6 Albumin/Globulin Ratio 1.0 PFSH Medical History (Updated 02/23/20 @ 05:06 by SHERLY Wolfe) Anxiety Chronic low back pain Surgical History (Updated 02/23/20 @ 05:06 by SHERLY Wolfe) History of wisdom tooth extraction Family History (Updated 02/23/20 @ 05:08 by SHERLY Wolfe) Father Medical history unknown Mother Hypertension Sister No significant medical problems Grandmother Cancer Grandfather Heart disease Social History household members: significant other Smoking Status: Never smoker alcohol intake: current Discharge Plan Discharge Plan Patient Disposition: Home Discharge orders & Medications Prescriptions: New sertraline [Zoloft] 50 mg Tablet 25 mg PO BEDTIME Qty: 30 RF: 0 cefuroxime axetil 500 mg tablet 500 mg PO BID Qty: 14 RF: 0 Continued drospirenone-ethinyl estradiol [SHAMIR (28)] 3-0.02 mg Tablet 1 tab PO DAILY RF: 0 Visit Report/Discharge Packet Instructions: DI for Heart Failure, DI for Prescription Opioid Use, Cefuroxime, Sertraline
== END 2020-02-24 12:17 | disposition home or self-care (01) | DRG 862 ==
LOC: ED 21:40 → AC 23:33
PROVIDERS: Internal Medicine; Admitting Provider Nurse Practitioner Adult Health; Emergency Provider Emergency Medicine; Referring Provider Emergency Medicine; Visit Provider Nurse Practitioner Adult Health
DX: T81.44XA Sepsis following a procedure, initial encounter (principal); A41.9 Sepsis, unspecified organism; E86.0 Dehydration; F41.0 Panic disorder [episodic paroxysmal anxiety]; F41.1 Generalized anxiety disorder; R07.9 Chest pain, unspecified; Z88.0 Allergy status to penicillin; Z20.822 Contact with and (suspected) exposure to COVID-19
CPT/HCPCS: 36415; 71045; 71275; 80048; 80053; 80076; 81003; 81025; 82728; 82962; 83605; 83735; 84145; 85025; 86140; 87040; 87502; 87635; 93005; 93010; 96361; 96365; 96375; 99284; C9803; J0295; J0696; J1650; J1885; J2060; J2405; J3475